=== PATIENT | male | born 2005 | race Hispanic/Latino ===

== ENCOUNTER 2024-06-27 00:10 | Emergency (ER) | payer OTHER ==
[2024-06-27] MEDS ORDERED: HYDROcodone/Acetaminophen 5/325 mg Tablet ONE (00:43)
[2024-06-27] MEDS ORDERED: Silver Sulfadiazine 50 GM JAR ONE (00:43)
[2024-06-27] MEDS ORDERED: Ketorolac Tromethamine 30 MG (1 mL) VIAL ONE (00:43)
[2024-06-27] MEDS ORDERED: Boostrix 0.5 ML (Tdap) VIAL (>/=7 yrs of age) ONE (00:44)
== END 2024-06-27 01:34 | disposition home or self-care (01) ==
LOC: CSHERS 00:10
DX: T24.231A Burn of second degree of right lower leg, initial encounter (principal); X08.8XXA Exposure to other specified smoke, fire and flames, initial encounter
CPT/HCPCS: 90471; 90715; 96372; J1885

== ENCOUNTER 2024-07-06 08:19 | Outpatient (CLI) | payer OTHER | END 2024-07-06 08:20 | disposition home or self-care (01) | LOC: CSHWCC 08:19 | PROVIDERS: ATTEND Nurse Practitioner Family | DX: T24.231D Burn of second degree of right lower leg, subsequent encounter (principal); T24.232D Burn of second degree of left lower leg, subsequent encounter | CPT/HCPCS: 97597; 97598; 99213; G0463 ==

== ENCOUNTER 2024-07-13 15:57 | Outpatient (CLI) | payer OTHER | END 2024-07-13 15:58 | disposition home or self-care (01) | LOC: CSHWCC 15:57 | PROVIDERS: ATTEND Nurse Practitioner Family | DX: T24.231D Burn of second degree of right lower leg, subsequent encounter (principal); T24.232D Burn of second degree of left lower leg, subsequent encounter | CPT/HCPCS: 99212; G0463 ==